=== PATIENT | female | born 1965 | race Caucasian/White ===

== ENCOUNTER 2024-08-25 15:20 | Outpatient (AMB) | payer BC, SELFPAY ==
--- NOTE | 2024-08-25 15:23 | A.OFFPC_ITS ---
Vital Signs 08/25/24 15:30 Height 5 ft 3.98 in Weight 189 lb 4 oz BMI 32.5 BP 124/86 Blood Pressure Location Rt brachial Position Sitting Respiration 14 Pulse 95 Pulse Source Pulse Oximeter Pulse Oximetry (%) 98 Oxygen Delivery Method Room Air Intake Visit Reasons: Est. Care Allergies No Known Allergies Allergy (Verified 08/25/24 15:25) Medication List - Last Reconciled 08/25/24 by Lauren Tinsley MD alprazolam 0.25 mg PO DAILY PRN ascorbate calcium (vitamin C) PO multivitamin 1 tab PO DAILY omega-3 fatty acids (Fish Oil) PO venlafaxine ER 150 mg PO DAILY Tobacco use date assessed: 08/25/24 Dental Screening Dental Screen Date: 08/25/24 Did you have a dental visit in the last 12 months?: Yes Did you have a dental problem in the last 6 months where you did not have access to dental care?: No Was dental information given to patient?: Patient has dentist HPI HPI Comments History of Present Illness Details 59 year old female with a past medical h istory of depression and anxiety, history of elevated bp, BRCA2, hyperlipidemia, right carpal tunnel [facility] Anxiety & depression-stable, she would like to try a higher dose of effexor. Still lacking some motivation. Anxiety can still be intermittently high. Takes 0.125-0.25mg xanax as needed for acute anxiety She believes her mammogram is up to date. Records not yet received ROS CONSTITUTIONAL: Denies weight loss, fever and chills. HEENT: Denies changes in vision and hearing. RESPIRATORY: Denies SOB and cough. CV: Denies palpitations and CP GI: Denies abdominal pain, nausea, vomiting and diarrhea. : Denies dysuria and urinary frequency. MSK: Denies new myalgia and joint pain. SKIN: Denies rash and pruritus. NEUROLOGICAL: Denies headache PSYCHIATRIC: Denies recent changes in mood. PHYSICAL EXAM: GENERAL: Alert and oriented x 3. NAD EYES: EOMI. Anicteric. HENT: Moist mucous membranes. No scleral icterus. No cervical lymphadenopathy. LUNGS: Clear to auscultation bilaterally. CARDIOVASCULAR: Regular rate and rhythm. No murmur. No JVD. ABDOMEN: Soft, non-tender +bs EXTREMITIES: No edema. Non-tender. SKIN: No rashes or lesions. Warm. NEUROLOGIC: No focal neurological deficits. CN II-XII grossly intact PSYCHIATRIC: Cooperative. Appropriate mood and affect [facility] Surgical History H/O bilateral salpingo-oophorectomy Hx of breast augmentation Family History (Updated 08/25/24 @ 15:36 by Rossi Hill CMA) Maternal Aunt Cancer of breast Paternal Uncle Brain cancer Paternal Grandmother Cancer of colon Father Alcoholism Other Substance abuse Social History (Updated 08/25/24 @ 15:39 by Rossi Hill CMA) Housing: House Alcohol intake: current Patient Tobacco Use Status: Former Tobacco user (quit 20 years ago) Cigarettes Per Day: 2 Years Smoked: 8 e-Cigarette/Vaping Use: Never Used Second Hand Smoke Exposure: No service: No Current occupational status: employed 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 1. Little interest or pleasure in doing things: several days 2. Feeling down, depressed, or hopeless: several days 3. Trouble falling or staying asleep, or sleeping too much: several days 4. Feeling tired or having little energy: nearly every day 5. Poor appetite or overeating: several days 6. Feeling bad about yourself - or that you are a failure or have let yourself or your family down: several days 7. Trouble concentrating on things, such as reading the newspaper or watching television: several days 8. Moving or speaking so slowly that other people could have noticed. Or the opposite - being so fidgety or restless that you have been moving around a lot more than usual: not at all 9. Thoughts that you would be better off or of hurting yourself in some way: several days Total score: 10 Depression Screening Interpretation: Positive Depression Screening Follow-up: Existing condition Depression Screening Done: Yes 82705 - PHQ-9 Billing: Yes Source: Developed by Drs. Dmitry Carrillo, Andressa Ventura, Ubaldo Key and colleagues, with an educational leanna from [employer]. Thrive Questionnaire Date Thrive assessed: 08/25/24 I am a: Patient What is your living situation today?: I have a steady place to live Within the past 12 months, did the food you bought not last and you didn't have the money to get more?: Never true Within the past 12 months, did you worry whether your food would run out before you got money to buy more?: Never true Do you have trouble paying for medicines?: No Do you have trouble getting transportation to medical appointments?: No Do you have trouble paying your heating and electricity bill?: No Do you have trouble taking care of your child, family member or friend?: No Do you have trouble with day-to-day activities such as bathing, preparing meals, shopping, managing finances, etc.?: No Are you currently unemployed and looking for a job?: No Are you interested in more education?: Yes Please select the resources that you would like help with: None Currently or been in a relationship where the following occur: I choose not to answer THRIVE Score: 0 AUDIT C Alcohol Use Questionnaire (AUDIT-C) 1. How often do you have a drink containing alcohol?: 4 or more times a week 2. How many drinks containing alcohol do you have on a typical day when you are drinking?: 3 or 4 3. How often do you have six or more drinks on one occasion?: Weekly Total Score: 8 ARACELIS-7 AMB Questionnaire ARACELIS-7 Date ARACELIS - 7 assessed: 08/25/24 Feeling nervous, anxious, or on edge: 1 = Several days Not being able to stop or control worryin = Several days Worrying too much about different things: 1 = Several days Trouble relaxin = Several days Being so restless that it is hard to sit still: 0 = Not at all Becoming easily annoyed or irritable: 0 = Not at all Feeling afraid as if something awful might happen: 1 = Several days Total ARACELIS-7 score (0-4 normal; 5-9 mild; 10-14 moderate; 15-21 severe): 5 Source: Developed by Drs. Dmitry Carrillo, Andressa Ventura, Ubaldo Key and colleagues, with an educational leanna from [employer]. ARACELIS-7 Assessment Billing ARACELIS-7 Assessment Tool: ARACELIS-7 Assessment 73108 Physical exam (Primary Care) Vital Signs: Last Vital Signs Pulse 95 08/25/24 15:30 Resp 14 08/25/24 15:30 BP 124/86 08/25/24 15:30 Pulse Ox 98 08/25/24 15:30 Oxygen Delivery Method Room Air 08/25/24 15:30 BMI result Body Mass Index 32.5 Tobacco/Smoking Status: Tobacco use Status Tobacco use date assessed 08/25/24 08/25/24 15:38 Patient Tobacco Use Status Former Tobacco user (quit 20 08/25/24 15:39 years ago) e-Cigarette/Vaping Use Never Used 08/25/24 15:39 PHQ-9: PHQ-9 Score PHQ-9: Total score 10 08/25/24 15:40 Depression Screening Interpretation: Positive Depression Screening Follow-up: Existing condition Thrive Assessment: Date of Thrive Assessment Date Thrive assessed 08/25/24 08/25/24 15:38 Currently or been in a relationship where the following occur: I choose not to answer Coding Level of Care Code Est Pt Level 4 (58749) Diagnoses Major depressive disorder in partial remission, unspecified whether recurrent F32.4 Major depression recurrence: unspecified whether recurrent Generalized anxiety disorder F41.1 Additional Codes ARACELIS-7 Assessment Billing - ARACELIS-7 Assessment Tool: RAACELIS-7 Assessment 89495 ([id number]) PHQ-9 - 23900 - PHQ-9 Billing: Yes ([id number]) Assessment & Plan Assessment & Plan (1) Major depression in partial remission: Code(s): F32.4 - Major depressive disorder, single episode, in partial remission Category: Medical Qualifiers: Major depression recurrence: unspecified whether recurrent Qualified Code(s): F32.4 - Major depressive disorder, single episode, in partial remission (2) Generalized anxiety disorder: Code(s): F41.1 - Generalized anxiety disorder Category: Medical Plan 59 year old to reestablish care Past medical, surgical, social and interval history reviewed Anxiety/depression-increase effexor to 225mg daily Xanax prn-sparing. Do not combine with other sedative drugs, alcohol Medications: New venlafaxine ER 225 mg PO DAILY 90 tabs 3RF alprazolam 0.25 mg PO BID PRN 56 tabs 0RF anxiety 28 days
[2024-08-25 15:30] VITALS: BP 124/86; PULSE 95; RESP 14; O2SAT 98; BMI 32.5
--- OUTSIDE RECORDS SUMMARY | 2024-08-25 16:33 | XMS_ITS | Data Portability ---
Author Organization [facility], [address] Address [address] [place] [address] Assessment No assessment recorded. Plan of Treatment Reminders Order Date Submit Date Provider Last Modified By Organization Details Last Modified Time Details Appointments None recorded. Lab None recorded. Referral None recorded. Procedures None recorded. Surgeries None recorded. Imaging XR, knee, 3 view 2023 024 [facility], [address] [place], [address], 18:21:11 Medication Orders naproxen 500 mg tablet 2023 024 [id number], [address] [place], [address], 17:56:19 Patient TargetsNo targets recorded. Patient Instructions Encounter Date Encounter Id Patient Instructions Last Modified By Organization Details Last Modified Time 10/15/2023 [id number] knee pain or injury: care instructions [email or web address] Not available 10/15/2023 17:17:02 Reason for Referral None Reported. Results Created Date Observation Date Name Description Value Unit Range Abnormal Flag Note LastModifiedBy Organization Detail LastModifiedTime 10/15/19 24 10/15/2023 XR, knee, 3 view No observ ation record ed. [email or web address] [facility] [address] [place], [address], 10/15/2023 18:39:47 Result Notes None recorded. Problems Name Problem SNOMED Code Status Onset Date Resolution Date Notes Provider Name and Address Organization Details Recorded Time Pain of right knee joint [id number] Active 2023 Scar Wright, CLINICAL SERVICES SPECIALIST [address] [place], [address] [facility] [place] - [facility] 4 17:16:45 Problem Notes None recorded. Procedures Surgical History Date Name Laterality Status Provider Name and Address Organization Details Recorded Time 3 OC-UDS Rapid 5 or 10 panel Template completed TRACEY RODRIGUEZ [place] - [facility] 06/15/2022 14:33:11 Imaging Results None recorded. Procedure Notes None recorded. Medical Equipment None Reported. Allergies No known drug allergies Medications Name Sig Start Date Stop Date Status Note LastModified by Organization Details LastModified Time venlafaxine ER 37.5 mg capsule,ext ended release 24 hr PLEASE SEE ATTACHED FOR DETAILED DIRECTION S 10/14 completed Not Available Not Available Not Available venlafaxine ER 150 mg capsule,ext ended release 24 hr TAKE 1 CAPSULE BY MOUTH EVERY DAY active Not Available Not Available No t Available alprazolam 0.25 mg tablet TAKE 1 TABLET BY MOUTH DAILY,X28 DAYS NEEDED FOR ANXIETY active Not Available Not Available No t Available naproxen 500 mg tablet TAKE 1 TABLET BY MOUTH TWICE A DAY NEEDED FOR PAIN/INFL AMMATION FOR 10 DAYS active Not Available Not Available No t Available escitalopra m 10 mg tablet TAKE 1 TABLET BY MOUTH EVERY DAY active Not Available Not Available No t Available escitalopra m 5 mg tablet TAKE 1 TABLET BY MOUTH EVERY DAY active Not Available Not Available No t Available Vitals Date Recorded Body height Body mass index (BMI) Body weight Oxygen saturation Oxygen saturation in Arterial blood by Pulse oximetry Heart rate Body temperature Systolic blood pressure Diastolic blood pressure Provider Name and Address Organization Details Last Updated DateTime 4 165.1 cm 30.3 kg/m2 10675.8 1 g 96 % 96 % 93 /min 98.4 [degF] 145 mm[Hg] 95 mm[Hg] Shira Del Cid [place] - [facility] 4 17:05:28 Social History Question Answer Notes LastModified by Organizat ion Details LastModified Time Tobacco Smoking Status Former Smoker Shira harmon [place] - [facility] 10/15/2023 17:08:27 Which Illicit Or Recreational Drugs Have You Used? Marijuana, Edibles Information not available 10/15/2023 When Did You Quit Smoking? 16+yearssinc elastcigaret te Information not available 10/15/2023 Have You Had A Flu Shot This Season? No Information not available 10/15/2023 If No, Would You Like A Flu Shot Today? No Information not available 10/15/2023 What Is Your Relationship Status? Information not available 10/15/2023 Are You Passively Exposed To Smoke? No Information no t available 10/15/2023 Have You Recently Traveled Abroad? No Information not available 10/15/2023 Sex: Unknown Functional Status Question Answer Note LastModified by Organizat ion Details LastModified Time Do you use any illicit or recreational drugs? Yes Information not available 10/15/2023 Do you or have you ever used any other forms of tobacco or nicotine? No Information not available 10/15/2023 Are you currently employed? Yes Information not available 10/15/2023 Mental Status None recorded. Family History Nothing Reported. Medical History No medical history recorded. Gynecological History Statement/Question Response Is there any chance of ? No LMP N/A Obstetrics History GPAL:G 0 P 0 0 0 0 Past Encounters Encounter ID Performer Location Encounter Start Date Encounter Closed Date Diagnosis/Indication Diagnosis SNOMED-CT Code Diagnosis ICD10 Code Diagnosis Note [id number] [facility] NAVARRETE [address] [facility] [address] [place] [address] 06/15/2022 13:25:02 06/15/2022 14:33:54 History and physical examination, occupation [id number] Z02.1 [id number] [place] [address] [address] 10/15/2023 16:23:32 10/15/2023 18:07:57 Pain of right knee joint [id number] 64071 M25.561 You have been diagnosed with Prepatella r Bursitis. This is usually caused by overuse or direct trauma to the bursa sac. These will typically resolve on it's own after 1-2 months. Unfortunat chacorta, this is a slow process. The following recommenda tions will help allow this to improve. 1. Avoid direct contact - do not kneel on your knees.2. Warm compresses 3. Slight Compressio n will help - but don't cut off circulatio n. Draining these are usually only temporary and will return within 24 hours. I suggest taking Tylenol or Ibuprofen to help with the inflammato ry process if you are not allergic to either. Ibuprofen should not be taken with a blood thinner or if you have a pending surgery. If this does not improve after 1-2 months - the next step would be to see an orthopedis t. The following would indicate that these are infected and you should be seen right away:1. Redness on the skin2. Heat over the area3. Pain with pushing on the site4. Scabbing or purulent discharge5 . Significan t calf pain and swelling. You should also be seen if you develop:1. numbness in the leg2. Bruising or Dark Skin. thank you for using [employer] today. Please feel free to contact us if you have any questions or concerns. Health Concerns Section Related Observation LastModified by Organization Detai ls LastModified Time None Recorded Concern Status LastModified by Organization Details LastModified Time None Recorded Advance Directives Directive None Recorded Payers Insurance Date Sequence Insurance Name Policy Number Policy Campos Covered Member ID Campos Member ID Guarantor Name 10/15/2023 1 [employer] [id number] Ruth Luque [id number] Ruth Luque 06/15/2022 [employer] Ruth Luque Notes Date Note Type Note Provider Name and Address Organization Details Recorded Time 10/15/2023 text/html KneeReported bypatient.Location :right; anterior; medial; 58 year old female comes in stating she has pain in her right knee on/off x 2 months she just want to get x-ray to rule out any arthritis. right knee also bigger then compared to left knee. Quality:aching; dull; frequent; not changing Severity:mild Duration:2 months Timing:gradual; intermittent episodes lasting: Context:atraumatic Alleviating Factors:rest; elevation; limited weight bearing; NSAIDs Aggravating Factors:weight bearing; exercise Associated Symptoms:no numbness; no tingling; no swelling; no redness; no warmth; no ecchymosis; no catching/locking; no popping/clicking; no buckling; no grinding; no instability; no radiation down leg; no drainage; no fever; no chills; no weight loss; no change in bowel/bladder habits;weakness Previous Surgery:none Prior Imaging:none Previous Injections:none Previous PT:none Work Related:no Working:no Scar Wright NP [address] [place], [address], [place] - [facility] 10/15/2023 18:00:04 OBGyn Episode No OBEpisode recorded.
== END 2024-08-25 15:52 | disposition home or self-care (01) ==
LOC: HO.HMCFM 15:21
PROVIDERS: PCP Internal Medicine; Visit Provider Internal Medicine
DX: F32.4 Major depressive disorder, single episode, in partial remission (principal); F41.1 Generalized anxiety disorder

== ENCOUNTER → 2024-08-25 15:20 | Outpatient (BNVA) | payer BC, SELFPAY | PROVIDERS: PCP Internal Medicine; Visit Provider Internal Medicine | DX: Z76.89 Persons encountering health services in other specified circumstances (principal); F32.4 Major depressive disorder, single episode, in partial remission; F41.1 Generalized anxiety disorder; E78.5 Hyperlipidemia, unspecified; Z79.899 Other long term (current) drug therapy; Z13.30 Encounter for screening examination for mental health and behavioral disorders, unspecified; Z13.31 Encounter for screening for depression | CPT/HCPCS: 96127 ==

== ENCOUNTER 2025-02-02 14:50 | Outpatient (AMB) | payer BC, SELFPAY ==
--- NOTE | 2025-02-02 14:57 | A.OFFPC_ITS ---
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 Still lacking some motivation. Anxiety can still be intermittently high. Takes 0.125-0.25mg xanax as needed for acute anxiety Right hip pain since ~2018. She believes she hyperextended it at that. It flares if she is very inactive or overly active. Previously did complete a PT course around that time. Hurts going down stairs, walking any distance and sitting. Located right hip into groin and down thigh with some radiation into the lower leg. Tells me previous unremarkable low back xr She thinks she is overdue for colonoscopy [facility] ROS see HPI PHYSICAL EXAM: GENERAL: Alert and oriented x 3. NAD EYES: EOMI. Anicteric. HENT: Moist mucous membranes. No scleral icterus. No cervical lymphadenopathy. LUNGS: Clear to auscultation bilaterally. CARDIOVASCULAR: Regular rate and rhythm. No murmur. No JVD. ABDOMEN: Soft, non-tender +bs MSK: Hip mild tenderness to palpation. Pain with flexion against resistance EXTREMITIES: No edema. Non-tender. SKIN: No rashes or lesions. Warm. NEUROLOGIC: No focal neurological deficits. CN II-XII grossly intact PSYCHIATRIC: Cooperative. Appropriate mood and affect PFSH Surgical History H/O bilateral salpingo-oophorectomy Hx of breast augmentation Family History Maternal Aunt Cancer of breast Paternal Uncle Brain cancer Paternal Grandmother Cancer of colon Father Alcoholism Other Substance abuse Social History Housing: House Alcohol intake: current Patient Tobacco Use Status: Former Tobacco user (quit 20 years ago) Cigarettes Per Day: 2 Years Smoked: 8 e-Cigarette/Vaping Use: Never Used Second Hand Smoke Exposure: No service: No Current occupational status: employed Current occupation: [employer] Current occupational exposures/hazards: No Cognitive needs: No Hearing needs: No Vision needs: No Questionnaire PHQ-9 Over the last 2 weeks, how often have you been bothered by any of the following problems? 1. Little interest or pleasure in doing things: several days 2. Feeling down, depressed, or hopeless: not at all 3. Trouble falling or staying asleep, or sleeping too much: several days 4. Feeling tired or having little energy: several days 5. Poor appetite or overeating: not at all 6. Feeling bad about yourself - or that you are a failure or have let yourself or your family down: not at all 7. Trouble concentrating on things, such as reading the newspaper or watching te levision: several days 8. Moving or speaking so slowly that other people could have noticed. Or the opposite - being so fidgety or restless that you have been moving around a lot more than usual: not at all 9. Thoughts that you would be better off or of hurting yourself in some way: not at all Total score: 4 Depression Screening Interpretation: Positive Depression Screening Follow-up: Existing condition Depression Screening Done: Yes 10925 - PHQ-9 Billing: Yes Source: Developed by Drs. Dmitry Carrillo, Andressa Ventura, Ubaldo Key and colleagues, with an educational leanna from [employer]. Thrive Questionnaire Date Thrive assessed: 08/25/24 I am a: Patient What is your living situation today?: I have a steady place to live Within the past 12 months, did the food you bought not last and you didn't have the money to get more?: Never true Within the past 12 months, did you worry whether your food would run out before you got money to buy more?: Never true Do you have trouble paying for medicines?: No Do you have trouble getting transportation to medical appointments?: No Do you have trouble paying your heating and electricity bill?: No Do you have trouble taking care of your child, family member or friend?: No Do you have trouble with day-to-day activities such as bathing, preparing meals, shopping, managing finances, etc.?: No Are you currently unemployed and looking for a job?: No Are you interested in more education?: Yes Please select the resources that you would like help with: None Currently or been in a relationship where the following occur: I choose not to answer THRIVE Score: 0 AUDIT C Alcohol Use Questionnaire (AUDIT-C) 1. How often do you have a drink containing alcohol?: 4 or more times a week 2. How many drinks containing alcohol do you have on a typical day when you are drinking?: 1 or 2 3. How often do you have six or more drinks on one occasion?: Monthly Total Score: 6 ARACELIS-7 AMB Questionnaire ARACELIS-7 Date ARACELIS - 7 assessed: 08/25/24 Source: Developed by Drs. Dmitry Carrillo, Andressa Ventura, Ubaldo Key and colleagues, with an educational leanna from [employer]. Physical exam (Primary Care) Vital Signs: Last Vital Signs Temp 98.6 F 02/02/25 15:00 Pulse 112 H 02/02/25 15:00 Resp 14 02/02/25 15:00 BP 148/90 H 02/02/25 15:09 Pulse Ox 97 02/02/25 15:00 Oxygen Delivery Method Room Air 02/02/25 15:00 BMI result Body Mass Index 27.8 Tobacco/Smoking Status: Tobacco use Status Tobacco use date assessed 02/02/25 02/02/25 15:04 Patient Tobacco Use Status Former Tobacco user (quit 20 02/02/25 14:59 years ago) e-Cigarette/Vaping Use Never Used 02/02/25 14:59 PHQ-9: PHQ-9 Score PHQ-9: Total score 4 02/02/25 15:17 Depression Screening Interpretation: Positive Depression Screening Follow-up: Ex isting condition Thrive Assessment: Date of Thrive Assessment Date Thrive assessed 08/25/24 02/02/25 14:59 Currently or been in a relationship where the following occur: I choose not to answer Coding Level of Care Code Est Pt Prev Care 40-64y(67163) Diagnoses Physical exam Z00.00 Major depressive disorder in partial remission, unspecified whether recurrent F32.4 Major depression recurrence: unspecified whether recurrent Generalized anxiety disorder F41.1 Right hip pain M25.551 Additional Codes PHQ-9 - 55227 - PHQ-9 Billing: Yes ([id number]) Assessment & Plan Assessment & Plan (1) Physical exam: Code(s): Z00.00 - Encounter for general adult medical examination without abnormal findings (2) Major depression in partial remission: Onset Date: ~02/02/25 Code(s): F32.4 - Major depressive disorder, single episode, in partial remission Category: Medical Qualifiers: Major depression recurrence: unspecified whether recurrent Qualified Code(s): F32.4 - Major depressive disorder, single episode, in partial remission (3) Generalized anxiety disorder: Code(s): F41.1 - Generalized anxiety disorder Category: Medical (4) Right hip pain: Code(s): M25.551 - Pain in right hip Category: Medical Plan 59 year old female for CPE Interval history reviewed Preventive measures for age discussed Mammo ordered Refer to GI for consideration of colonoscopy Right hip pain-likely needs MRI which is ordered. xr ordered. Refer ortho Orders: Orders XR hip RT min 2V 02/02/25 M25.551 - Pain in right hip Complete Blood Count Auto Diff 02/02/25 R35.89 - Other polyuria, Z13.0 - Encounter for screening for diseases of the blood and blood-forming organs and certain disorders involving the immune mechanism, Z13.220 - Encounter for screening for lipoid disorders, Z13.228 - Encounter for screening for other metabolic disorders Lipid Panel 02/02/25 R35.89 - Other polyuria, Z13.0 - Encounter for screening for diseases of the blood and blood-forming organs and certain disorders involving the immune mechanism, Z13.220 - Encounter for screening for lipoid disorders, Z13.228 - Encounter for screening for other metabolic disorders TSH reflex Free T4 02/02/25 R35.89 - Other polyuria, Z13.0 - Encounter for screening for diseases of the blood and blood-forming organs and certain disorders involving the immune mechanism, Z13.220 - Encounter for screening for lipoid disorders, Z13.228 - Encounter for screening for other metabolic disorders Hemoglobin A1c 02/02/25 R35.89 - Other polyuria, Z13.0 - Encounter for screening for diseases of the blood and blood-forming organs and certain disorders involving the immune mechanism, Z13.220 - Encounter for screening for lipoid disorders, Z13.228 - Encounter for screening for other metabolic disorders MM screening mammo BI 02/02/25 Z12.31 - Encounter for screening mammogram for malignant neoplasm of breast MR hip RT wo con 02/02/25 M25.551 - Pain in right hip Comprehensive Met. Panel 02/02/25 R35.89 - Other polyuria, Z13.0 - Encounter for screening for diseases of the blood and blood-forming organs and certain disorders involving the immune mechanism, Z13.220 - Encounter for screening for lipoid disorders, Z13.228 - Encounter for screening for other metabolic disorders Referrals Orthopedics Referral M25.551 - Pain in right hip Gastroenterology Referral Z12.11 - Encounter for screening for malignant neoplasm of colon, Z15.01 - Genetic susceptibility to malignant neoplasm of breast, Z15.09 - Genetic susceptibility to other malignant neoplasm Medications: New prednisone 40 mg (2 x 20 mg) PO DAILY 10 tabs 0RF
[2025-02-02 15:00] VITALS: BP 154/94; PULSE 112; RESP 14; TEMP 37; O2SAT 97; BMI 27.8
[2025-02-02 15:09] VITALS: BP 148/90
--- OUTSIDE RECORDS SUMMARY | 2025-02-02 17:05 | XMS_ITS | Data Portability ---
Author Organization [facility], [address] Address [address] [place] [address] Assessment No assessment recorded. Plan of Treatment Reminders Order Date Submit Date Provider Last Modified By Organization Details Last Modified Time Details Appointments None recorded. Lab None recorded. Referral None recorded. Procedures None recorded. Surgeries None recorded. Imaging XR, knee, 3 view 2023 024 [facility], [address] [place], [address], 18:21:11 Medication Orders naproxen 500 mg tablet 2023 024 [id number], [address] [place] [address], [address], 17:56:19 Patient TargetsNo targets recorded. Patient Instructions Encounter Date Encounter Id Patient Instructions Last Modified By Organization Details Last Modified Time 10/15/2023 [id number] knee pain or injury: care instructions [email or web address] Not available 10/15/2023 17:17:02 Reason for Referral None Reported. Results Created Date Observation Date Name Description Value Unit Range Abnormal Flag Note LastModifiedBy Organization Detail LastModifiedTime 10/15/19 24 10/15/2023 XR, knee, 3 view No observ ation record ed. [email or web address] [facility] [address] [place], [address], 10/15/2023 18:39:47 Result Notes None recorded. Problems Name Problem SNOMED Code Status Onset Date Resolution Date Notes Provider Name and Address Organization Details Recorded Time Pain of right knee joint [id number] Active 2023 Scar Wright, VINAYAK [address] [place], [address] [facility] [place] - [facility] 4 17:16:45 Problem [...] Pulse oximetry Heart rate Body temperature Systolic And Diastolic Provider Name and Address Organization Details Last Updated DateTime 4 165.1 cm 30.3 kg/m2 60983.8 1 g 96 % 96 % 93 /min 98.4 [degF] 145/95 mm[Hg] Shira Del Cid [facility] - [facility] [...] Diagnosis SNOMED-CT Code Diagnosis ICD10 Code Diagnosis IMO Codes Diagnosis Note [id number] [facility] NAVARRETE [address] [facility] [address] [place] [address] 06/15/2022 13:25:02 06/15/2022 14:33:54 History and physical examination, occupation [id number] Z02.1 [id number] Scar Wright [place] [address] [facility] [address] [place] [address] 10/15/2023 16:23:32 10/15/2023 18:07:57 Pain of right knee joint [id number] 51085 M25.561 You have been diagnosed with Prepatella [...] or Dark Skin. thank you for using [employer] today. Please feel free to contact us [...] Member ID Guarantor Name 10/15/2023 1 [employer] [id number] Ruth Luque [id number] Ruth Luque 06/15/2022 [employer] Ruth Luque Notes Date Note Type Note Provider Name and Address Organization Details Recorded Time 10/15/19 24 text/htm l KneeReported by PatientHPIFor associated symptoms, patient reportsweaknessbut reportsno numbness,no tingling,no swelling,no redness,no warmth,no ecchymosis,no catching/locking,no popping/clicking,no buckling,no grinding,no instability,no radiation down leg,no drainage,no fever,no chills,no weight loss, andno change in bowel/bladder habits. For location, patient reportsright,anterior, andmedial(58 year old female comes in stating she has pain in her right knee on/off x 2 months she just want to get x-ray to rule out any arthritis. right knee also bigger then compared to left knee.). For quality, patient reportsaching,dull,frequent, andnot changing. For severity, patient reportsmild. For duration, patient reports2 months. For timing, patient reportsgradualandintermittent episodes lasting:. For context, patient reportsatraumatic. For alleviating factors, patient reportsrest,elevation,limited weight bearing, andnsaids. For aggravating factors, patient reportsweight bearingandexercise. For previous surgery, patient reportsnone. For prior imaging, patient reportsnone. For previous injections, patient reportsnone. For previous pt, patient reportsnone. For work related, patient reportsno. For working, patient reportsno. Scar Wright NP [address] [place], [address], [place] - [facility] 10/15/2023 18:00:04 OBGyn Episode No OBEpisode recorded.
== END 2025-02-02 15:37 | disposition home or self-care (01) ==
LOC: HO.HMCFM 14:51
PROVIDERS: PCP Internal Medicine; Visit Provider Internal Medicine
DX: Z00.00 Encounter for general adult medical examination without abnormal findings (principal); F32.4 Major depressive disorder, single episode, in partial remission; F41.1 Generalized anxiety disorder; M25.551 Pain in right hip

== ENCOUNTER → 2025-02-02 14:50 | Outpatient (BNVA) | payer BC, SELFPAY | PROVIDERS: PCP Internal Medicine; Visit Provider Internal Medicine | DX: Z00.00 Encounter for general adult medical examination without abnormal findings (principal); F32.4 Major depressive disorder, single episode, in partial remission; F41.1 Generalized anxiety disorder; M25.551 Pain in right hip | CPT/HCPCS: 96127 ==

== ENCOUNTER 2025-02-10 08:40 | Outpatient (REF) | payer BC, SELFPAY ==
[2025-02-10 12:00] LABS: MANUAL DIFF FLAG NO
[2025-02-10 12:07] LABS: Hematocrit 39.8 % (37.0-47.0); Hemoglobin 13.2 g/dl (12.0-16.0); Imm Gran Abs Auto 0.09 X10*3/uL (0.00-0.03); Imm Gran Pct Auto 0.8 % (0.0-0.4); Lymphocytes Absolute Auto 3.6 X10*3/uL (1.2-4.9); Mean Corpuscular HGB Conc 33.2 g/dl (31.0-35.0); Mean Corpuscular Hemoglobin 32.4 pg (27.0-33.0); Mean Corpuscular Volume 97.5 fL (80.0-98.0); NRBC Abs Auto 0.000 X10*3/uL (0.0-0.012); NRBC Pct Auto 0.0 /100WBC (0.0-0.2); Platelet Count 373 X10*3/uL (160-400); Red Blood Count 4.08 X10*6/uL (4.20-5.50); White Blood Count 11.1 X10*3/uL (4.8-10.8)
[2025-02-10 12:37] LABS: Alanine Aminotransferase 104 U/L (0-31); Albumin Level 5.1 g/dL (3.5-5.0); Alkaline Phosphatase 75 U/L (39-117); Anion Gap 15 (12-20); Aspartate Amino Transferase 66 U/L (5-31); Blood Urea Nitrogen 18 mg/dL (9-16); Calcium 10.5 mg/dL (8.4-10.2); Carbon Dioxide 28 mmol/L (22-29); Chloride 100 mmol/L (96-108); Cholesterol 277 mg/dL (<200); Estimated Glomerular Filt Rate > 60; HDL Cholesterol 112 mg/dL (>40); Potassium 4.4 mmol/L (3.3-5.1); Sodium 139 mmol/L (135-145); Total Protein 8.1 g/dL (6.5-8.0); Triglycerides 145 mg/dL (<150)
== END 2025-02-10 08:41 | disposition home or self-care (01) ==
LOC: HO.WFDLDS 08:40
PROVIDERS: Visit Provider Internal Medicine
DX: Z13.0 Encounter for screening for diseases of the blood and blood-forming organs and certain disorders involving the immune mechanism (principal); Z13.228 Encounter for screening for other metabolic disorders; Z13.220 Encounter for screening for lipoid disorders; R35.89 Other polyuria; Z13.1 Encounter for screening for diabetes mellitus; Z13.6 Encounter for screening for cardiovascular disorders; Z13.29 Encounter for screening for other suspected endocrine disorder
CPT/HCPCS: 36415; 80053; 80061; 83036; 84443; 85025

== ENCOUNTER 2025-03-06 08:31 | Outpatient (REF) | payer BC, SELFPAY ==
[2025-03-06 11:09] LABS: MANUAL DIFF FLAG NO
[2025-03-06 11:15] LABS: Hematocrit 38.0 % (37.0-47.0); Hemoglobin 12.6 g/dl (12.0-16.0); Imm Gran Abs Auto 0.04 X10*3/uL (0.00-0.03); Imm Gran Pct Auto 0.5 % (0.0-0.4); Lymphocytes Absolute Auto 2.3 X10*3/uL (1.2-4.9); Mean Corpuscular HGB Conc 33.2 g/dl (31.0-35.0); Mean Corpuscular Hemoglobin 31.7 pg (27.0-33.0); Mean Corpuscular Volume 95.5 fL (80.0-98.0); NRBC Abs Auto 0.000 X10*3/uL (0.0-0.012); NRBC Pct Auto 0.0 /100WBC (0.0-0.2); Platelet Count 380 X10*3/uL (160-400); Red Blood Count 3.98 X10*6/uL (4.20-5.50); White Blood Count 8.8 X10*3/uL (4.8-10.8)
[2025-03-06 11:36] LABS: Alanine Aminotransferase 92 U/L (0-31); Albumin Level 5.2 g/dL (3.5-5.0); Alkaline Phosphatase 87 U/L (39-117); Anion Gap 11 (12-20); Aspartate Amino Transferase 66 U/L (5-31); Blood Urea Nitrogen 12 mg/dL (9-16); Calcium 10.3 mg/dL (8.4-10.2); Carbon Dioxide 27 mmol/L (22-29); Chloride 104 mmol/L (96-108); Estimated Glomerular Filt Rate > 60; Iron 109 mcg/dL (30-160); Percent Iron Saturation 35 % (15-50); Potassium 4.2 mmol/L (3.3-5.1); Sodium 138 mmol/L (135-145); Total Iron Binding Capacity 312 mcg/dL (228-428); Total Protein 8.5 g/dL (6.5-8.0); Unsaturated Iron Binding 203 ug/dL
[2025-03-06 11:55] LABS: HBS Num1 0.00 mIU/mL (0-7.99); HBc Num1 0.08 S/CO (0.00-0.79); HBsAGNum1 0.32 S/CO (0.00-0.99); Hepatitis B Surface Antigen Negative (Negative); ~HepC Num1 0.08 S/CO (0.00-0.79); ~Hepatitis B Surface Antibody NONREACTIVE (Nonreactive); ~Hepatitis C Antibody Nonreactive (Nonreactive)
[2025-03-06 12:02] LABS: Parathyroid Hormone Intact 42.4 pg/mL (8.7-77.1)
[2025-03-08 17:18] LABS: PEU-Protein Creat Ratio Rand 0.112 (0.024-0.184); PEU-Rand. Prot/Creat Ratio 112 mg/g creat (24-184); PEU-Random Ur. Gamma Globulin 0 %; PEU-Random Urine A1 Globulin 0 %; PEU-Random Urine A2 Globulin 0 %; PEU-Random Urine Albumin 100 %; PEU-Random Urine Beta Globulin 0 %; PEU-Random Urine Creatinine 107 mg/dL (20-275); PEU-Random Urine Protein 12 mg/dL (5-24)
[2025-03-09 20:44] LABS: VITAMIN D (1,25 OH) D3 56 pg/mL; Vit D (1,25-Dihydroxy) Total 56 pg/mL (18-72); Vitamin D (1,25 OH) D2 <8 pg/mL
== END 2025-03-06 08:32 | disposition home or self-care (01) ==
LOC: HO.WFDLDS 08:31
PROVIDERS: Visit Provider Internal Medicine
DX: D72.829 Elevated white blood cell count, unspecified (principal); R79.89 Other specified abnormal findings of blood chemistry; E83.52 Hypercalcemia
CPT/HCPCS: 80048; 80076; 82570; 82652; 83540; 83970; 84156; 84165; 84166; 85025; 86704; 86706; 86803; 87340